=== PATIENT | female | born 1960 ===

== ENCOUNTER 2020-01-10 05:30 | Day surgery (SDC) | payer OTHER ==
[~2020-01-10 05:30] MED LIST: ACULAR5 ML OP; PROMETRIUM200 MG PO; [UNRECOGNIZED DRUG - OTHER] OP
== END 2020-01-10 15:55 | disposition home or self-care (01) ==
LOC: CIR.AMB 05:30 → ADM 08:00 → CIR.AMB 08:30
DX: D26.0 Other benign neoplasm of cervix uteri (principal)

== ENCOUNTER 2020-05-19 21:06 | Inpatient (IN) | payer OTHER ==
[~2020-05-19] VITALS: Ht 149.9 cm; Wt 57.2 kg
[2020-05-20] MEDS ORDERED: MEGESTROL PO (12:12)
[2020-05-20] MEDS ORDERED: [UNRECOGNIZED DRUG - OTHER] (13:28)
[2020-05-22] MEDS ORDERED: MEGESTROL ACETA20 MG (08:55)
== END 2020-05-24 13:02 | disposition home or self-care (01) | DRG 743 ==
LOC: O/R 05-22 05:39 → SURH 05-22 08:15 → O/R 05-22 10:30 → SURH 05-22 10:30 → OB/GYN 05-22 11:00 → O/R 05-22 11:40 → OB/GYN 05-22 11:41 → O/R 05-22 11:43 → OB/GYN 05-22 11:44
PROVIDERS: ADMIT Obstetrics & Gynecology; ATTEND Obstetrics & Gynecology
PROC: 0UT70ZZ Resection of Bilateral Fallopian Tubes, Open Approach (ICD-10-PCS; 2020-05-22)
PROC: 0UT20ZZ Resection of Bilateral Ovaries, Open Approach (ICD-10-PCS; 2020-05-22)
PROC: 0UT90ZZ Resection of Uterus, Open Approach (ICD-10-PCS; principal; 2020-05-22 08:15)
DX: D25.1 Intramural leiomyoma of uterus (principal); D25.0 Submucous leiomyoma of uterus; N93.8 Other specified abnormal uterine and vaginal bleeding; N72 Inflammatory disease of cervix uteri; N83.322 Acquired atrophy of left fallopian tube; N83.321 Acquired atrophy of right fallopian tube